=== PATIENT | female | born 2000 | race Caucasian/White ===

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

== ENCOUNTER 2023-05-05 12:31 | Emergency (ER) | payer BC, SELFPAY ==
[2023-05-05 12:32] VITALS: BP 128/102; PULSE 92; RESP 14; TEMP 36.1; O2SAT 97; BMI 32.1
[2023-05-05 13:09] VITALS: BMI 32.0
[2023-05-05] MEDS: predniSONE 20 MG Tablet 60 MG PO (13:14)
--- NOTE | 2023-05-05 13:23 | EX.ED.GENINJ ---
HPI History of Present Illness Chief Complaint: Neuro S/Sx Narrative Narrative: 23-year-old female presenting with pain behind her left ear which has been there for about 2 days. She states it is a little bit swollen. Patient reports that last night she noticed that she could no longer move the left side of her face. She describes numbness and tingling of the left half of her face. She has not had this before. No history of trauma. No difficulty moving arms or legs. No numbness or tingling elsewhere. No trouble swallowing or breathing. [facility] Medical History Muscle twitching Home Medications norgestimate 0.25 mg-ethinyl estradiol 35 mcg tablet (Sprintec (28)) 1 tab PO QDAY take active pills only for continuous cycling #84 tabs 07/02/22 [Rx Last Taken Unknown] acyclovir 800 mg tablet 800 mg PO 5X/DAY #35 TABLETS 05/05/23 [Rx Last Taken Unknown] prednisone 10 mg tablet 10 mg PO BID #50 tabs 05/05/23 [Rx Last Taken Unknown] Allergy/AdvReac Type Severity Reaction Status Date / Time No Known Allergies Allergy Unverified 05/05/23 12:35 Family History Mother Diabetes Father CVA (cerebral vascular accident) Grandmother Diabetes Heart disease Hypertension Social History current occupational status: unemployed Smoking Status: Never smoker alcohol intake: never substance use type: does not use caffeine: Yes what type of physical activity do you participate in: none seatbelt use: always do you feel safe at home: Yes ROS ROS ED Constitutional Constitutional ED: Denies chills, fever(s) or sweats Eyes Eyes: Denies blurry vision or change in vision ENT ENT ED: Denies ear pain or sore throat Cardiovascular Cardiovascular: Denies chest pain, palpitations or racing heartbeat Respiratory/Chest Respiratory/Chest: Denies cough, dyspnea or sputum Gastrointestinal Gastrointestinal: Denies abdominal pain, constipation, diarrhea, nausea or vomiting Genitourinary Genitourinary ED: Denies dysuria, hematuria or urinary frequency Musculoskeletal Musculoskeletal: Denies arthralgias, myalgias or neck pain Integumentary Denies abscess, Abrasions or rash Neurologic Neurologic: Reports other Details: Left-sided facial palsy. ; Denies headache(s) Psychiatric Psychiatric: Denies anxiety, depression, suicidal ideation or suicidal thoughts Endocrine Endocrinology: Denies polydipsia or polyuria EXAM Physical Exam Const Vital Signs: 05/05/23 12:32 Temperature 97 F L Temperature Source Temporal Pulse Rate 92 Respiratory Rate 14 Blood Pressure 128/102 H Blood Pressure Mean 110 Pulse Ox 97 Oxygen Delivery Method Room Air Positive well nourished General Appearance ED: NAD HEENT atraumatic Eyes PERRL and EOMs intact bilaterally Chest Wall inspection of chest normal Resp normal respiratory effort and clear to auscultation bilaterally GI normal to inspection, nondistended, normoactive bowel sounds Back/Spine normal to inspection Extremity normal to inspection Neuro oriented x3 Neuro Narrative: Left-sided facial palsy with facial droop on the left. Crease sensation on left side of face. This does not spare the forehead. Left eye does not blink. Motor Exam: strength 5/5 throughout MDM MDM MDM Narrative Medical decision making narrative: Patient has a Mcnair's palsy. She will be started on prednisone and acyclovir. First dose given in the ER. Counseled her on treatment plan and follow-up. I did crisis intervention counselor her that at night she needs to tape her eye closed. She is use lots of eyedrops in the left eye. She acknowledges understanding of this. Return precautions discussed. Impression: 1. Mcnair's palsy Discharge Plan Triage Chief Complaint: Neuro S/Sx Other Complaint: Other, Pain/Inj ED Provider: Yan Macedo Dx/Rx/DC Orders Instructions: ED Mcnair's Palsy Prescriptions: New prednisone 10 mg tablet 10 mg PO BID Qty: 50 0RF Rx Instructions: 60 mg p.o. x6 days, then 40 mg p.o. x2 days, then 20 mg p.o. x2 days acyclovir 800 mg tablet 800 mg PO 5X/DAY Qty: 35 0RF No Action norgestimate-ethinyl estradiol [Sprintec (28)] 0.25-35 mg-mcg tablet 1 tab PO QDAY Qty: 84 5RF Primary Care Provider: Juanita Hagen Referrals: Rigoberto Yañez MD [Med Staff - [facility]] - Disposition Disposition: Home, Self Care
[2023-05-05] MEDS: Acyclovir 800 MG Tablet PO (13:35)
== END 2023-05-05 13:38 | disposition home or self-care (01) ==
PROVIDERS: Emergency Provider Student in an Organized Health Care Education/Training Program; PCP Physician Assistant; Referring Provider Student in an Organized Health Care Education/Training Program; Visit Provider Student in an Organized Health Care Education/Training Program
DX: G51.0 Bell's palsy (principal)
CPT/HCPCS: 99282

== ENCOUNTER → 2023-09-29 | Outpatient (CLI) | payer BC, SELFPAY ==
[2023-10-02 10:09] LABS: Chlamydia By Nucleic Acid AMP Negative (Negative); Gonococcus By Nucleic Acid AMP Negative (Negative)
[2023-10-04 15:59] LABS: HPV Reflexed? NOT INDICATED
== END | disposition home or self-care (01) ==
LOC: LABSPEC 16:59
PROVIDERS: PCP Physician Assistant; Visit Provider Nurse Practitioner Women's Health
DX: Z12.4 Encounter for screening for malignant neoplasm of cervix (principal); Z11.3 Encounter for screening for infections with a predominantly sexual mode of transmission
CPT/HCPCS: 87491; 87591; 88175; G0145

== ENCOUNTER → 2025-01-04 | Outpatient (CLI) | payer BC, SELFPAY ==
[2025-01-07 07:07] LABS: Chlamydia By Nucleic Acid AMP Negative (Negative); Gonococcus By Nucleic Acid AMP Negative (Negative)
== END | disposition home or self-care (01) ==
LOC: LABSPEC 15:26
PROVIDERS: PCP Physician Assistant; Referring Provider Nurse Practitioner Women's Health; Visit Provider Nurse Practitioner Women's Health
DX: Z11.3 Encounter for screening for infections with a predominantly sexual mode of transmission (principal)
CPT/HCPCS: 87491; 87591